=== PATIENT | male | born 1950 | race Caucasian/White ===

== ENCOUNTER → 2018-06-09 | Day surgery (SDC) | payer OTHER ==
[2018-06-04 09:07] LABS: Urine WBC None Seen /hpf (0 - 3)
[2018-06-04 09:13] LABS: Basophils # (auto) 0 uL; Basophils % (auto) 0.5 % (0.0-2.0); Eosinophils # (auto) 0.4 uL; Eosinophils % (auto) 5.2 % (0.0-7.0); Hematocrit 47.2 % (41.0-53.0); Hemoglobin 16.8 g/dL (13.5-17.5); Lymphocytes # (auto) 1.8 uL; Lymphocytes % (auto) 21.4 % (10.0-50.0); Mean Corpuscular Hgb Conc. 35.5 g/dL (32.0-36.0); Mean Corpuscular Volume 92.8 fL (80.0-100.0); Monocytes # (auto) 0.7 uL; Monocytes % (auto) 8.5 % (0.0-12.0); Neutrophils # (auto) 5.4 uL; Neutrophils % (auto) 64.4 % (37.0-80.0); Nucleated Red Blood Cells % 0.1 %; Platelet Count (auto) 208 10^3/uL (140-450); Red Blood Cells 5.08 10^6/uL (4.5-5.90); Red Cell Distribution Width 12.1 % (11.8-14.3); White Blood Cell 8.4 10^3/uL (4.4-10.8)
[2018-06-04 09:15] LABS: Urine Bacteria NONE SEEN /hpf (None Seen); Urine Blood Negative /uL (Negative); Urine Mucus FEW (None Seen); Urine Specific Gravity 1.014 (1.001-1.035)
[2018-06-04 09:33] LABS: INR 0.98 (0.9-1.15); Partial Thromboplastin Time 26.4 sec (23.78-33.04); Prothrombin Time 10.5 sec (9.27-12.13)
[2018-06-04 09:41] LABS: Albumin 3.8 g/dL (3.4-5.0); Potassium 4.3 mmol/L (3.5-5.1)
[2018-06-04 09:45] LABS: Bilirubin, Total 0.5 mg/dL (0.2-1.0); Total Protein 7.5 g/dL (6.4-8.2)
[~2018-06-09] VITALS: Ht 182.9 cm; Wt 89.8 kg
[~2018-06-09] MED LIST: AMLO10TA12 PO; BUPIVACAINE 0.25% INJ 50ML VIAL ONE; GLYCOPYRROLATE 0.2 MG/ML 1ML VIAL IV ONE; HYDR-531 PO; LISI10TA6 PO; MELO1TAB56 PO; MIDAZOLAM HCL 1MG/1ML-2 ML VIAL ONE; MORPHINE SULF(PF) 0.5MG/ML 10ML VIAL ONE; MORPHINE SULFATE 10 MG/ML INJ 1ML SDV IM ONE; ONDANSETRON HCL 4 MG/2 ML VIAL IV ONE; PROPOFOL 10 MG/ML 20 ML IV ONE; TRAZ150T79 PO; ceFAZolin 1GM/50ML 50 ML IV ONE; ePHEDrine SULFATE 50 MG/ML AMP IV PRN; fentaNYL CITRATE 100 MCG/2 ML VL IV PRN; fentaNYL CITRATE 100 MCG/2 ML VL ONE; hydrALAZINE HCL 20 MG/ML VL IV PRN
[2018-06-09 11:16] VITALS: BP 156/93
== END | disposition home or self-care (01) ==
LOC: SUR 07:26
PROVIDERS: ATTEND Orthopaedic Surgery
DX: M23.262 Derangement of other lateral meniscus due to old tear or injury, left knee (principal); M23.252 Derangement of posterior horn of lateral meniscus due to old tear or injury, left knee; M65.862 Other synovitis and tenosynovitis, left lower leg; I10 Essential (primary) hypertension; Z98.890 Other specified postprocedural states; Z86.19 Personal history of other infectious and parasitic diseases
CPT/HCPCS: 29876; 29880; 36415; 80053; 81001; 85025; 85610; 85730; A6257; J0690; J2250; J2270; J2704; J3010; J3490